=== PATIENT | male | born 1950 | race Native Hawaiian/Other Pacific Islander ===

== ENCOUNTER 2016-11-06 20:19 | Observation (INO) | payer MEDICARE, BC ==
[~2016-11-06] VITALS: Ht 182.9 cm; Wt 72.0 kg
[~2016-11-06 20:19] MED LIST: ACTO30TA10 PO; ASPI325T33 PO; BUPR150T3 PO; CALTTAB PO; CENTTAB PO; FOLI5CAP PO; METF1000 PO; METH5INJ INJ; PLAV75TA29 PO; ZOCO20TA PO
[2016-11-06 20:23] VITALS: BP 130/63; PULSE 77; RESP 18; TEMP 97.4; O2SAT 100
[2016-11-06] MEDS ORDERED: SODIUM CHLOR 0.9% 1000 ML INJ 1,000 ML IV SCH (20:50)
[2016-11-06] MEDS ORDERED: SODIUM CHLORIDE 0.9% FLUSH 5 ML FLUSH IVF PRN (21:00)
[2016-11-06] MEDS ORDERED: MORPHINE SULFATE 4 MG/ML INJ IV PUSH ONE ×2 (21:00→22:00)
[2016-11-06] MEDS ORDERED: PANTOPRAZOLE SODIUM 40 MG VIAL IV PUSH ONE (21:00)
--- NOTE | 2016-11-06 21:23 | PD ---
HPI Chief Complaint: Abdominal Pain Time Seen by Provider: 20:44 Travel History International Travel<30 days: No Contact w/Intl Traveler<30days: No Traveled to known affect area: No History of Present Illness HPI 66yo M with PMH of colorectal CA s/p colon resection, HTN, NIDDM, TIA, pancreatitis, bowel obstruction presents to the ED with c/o abdominal pain that started at 2:30pm today. Pain is diffuse but more on left upper quadrant. Currently does not feel nauseous and no vomiting. +Flatus. Normal bowel movement today. Had history of obstruction and partial obstruction before. Denies any fever, cough, chest pain, sob, urinary complaints. PFSH Past Medical History Cancer: Yes (colon) Cardiovascular Problems: No Diabetes: Yes Diminished Hearing: Yes (BILAT HEARING AIDS) Endocrine: Yes Gastrointestinal Disorders: Yes (PRIOR OBSTRUCTIONS) GERD: No Genitourinary: No Hiatal Hernia: No Immune Disorder: No Musculoskeletal: No Neurologic: No Reproductive: No Respiratory: No Thyroid Disease: No Ulcer: No Past Surgical History Abdominal Surgery: Yes (COLON RESECTION; HERNIA REPAIR) Cardiac Surgery: No Endocrine Surgery: No Eye Surgery: No Oral Surgery: No Thoracic Surgery: No Social History Alcohol Use: Yes (OCCASIONAL) Tobacco Use: No Substance Use: No Allergies-Medications (Allergen,Severity, Reaction): Coded Allergies: Tetracycline (Verified Allergy, Intermediate, RASH, 11/06/16) Reported Meds & Prescriptions Reported Meds & Active Scripts Active Plavix (Clopidogrel Bisulfate) 75 Mg Tab 75 Mg PO DAILY Aspirin EC (Aspirin) 325 Mg Tabdr 325 Mg PO DAILY Reported Tradjenta (Linagliptin) 5 Mg Tab 5 Mg PO DAILY Methotrexate Inj 50 Mg/2 Ml Inj 25 Mg INJ WEEKLY Zocor (Simvastatin) 20 Mg Tab 20 Mg PO DAILY Centrum Silver (Multiple Vitamins W/ Minerals) 1 Tab 1 Tab PO DAILY Caltrate 600+D (Calcium Carbonate-Cholecalciferol) 600-800 Mg-Unit Tab 1 Tab PO BID Actos (Pioglitazone HCl) 30 Mg Tab 30 Mg PO DAILY Metformin (Metformin HCl) 1,000 Mg Tab 1,000 Mg PO BIDPC With meals Folic Acid 5 Mg Cap 1 Mg PO DAILY Review of Systems Except as stated in HPI: all other systems reviewed are Neg Physical Exam Narrative GENERAL: 66yo M in mild distress. SKIN: Warm and dry. HEAD: Atraumatic. Normocephalic. EYES: Pupils equal and round. No scleral icterus. No injection or drainage. ENT: No nasal bleeding or discharge. Mucous membranes pink and moist. NECK: Trachea midline. No JVD. CARDIOVASCULAR: Regular rate and rhythm. No murmur appreciated. RESPIRATORY: No accessory muscle use. Clear to auscultation. Breath sounds equal bilaterally. GASTROINTESTINAL: Abdomen soft, +TTP LUQ, periumbilical. No rebound tenderness. +Guarding in LUQ. MUSCULOSKELETAL: No obvious deformities. No clubbing. No cyanosis. No edema. NEUROLOGICAL: Awake and alert. No obvious cranial nerve deficits. Motor grossly within normal limits. Normal speech. PSYCHIATRIC: Appropriate mood and affect; insight and judgment normal. Data Data Last Documented VS Vital Signs Date Time Temp Pulse Resp B/P Pulse Ox O2 Delivery O2 Flow Rate FiO2 11/07/16 00:00 84 16 111/61 100 Nasal Cannula 2 11/06/16 20:23 97.4 Orders Complete Blood Count With Diff (11/06/16 20:50) Comprehensive Metabolic Panel (11/06/16 20:50) Lipase (11/06/16 20:50) Prothrombin Time / Inr (Pt) (11/06/16 20:50) Act Partial Throm Time (Ptt) (11/06/16 20:50) Urinalysis - C+S If Indicated (11/06/16 20:50) Ct Abd/Pel W Iv Contrast(Rout) (11/06/16 20:50) Iv Access Insert/Monitor (11/06/16 20:50) Ecg Monitoring (11/06/16 20:50) Oximetry (11/06/16 20:50) Morphine Inj (Morphine Inj) (11/06/16 21:00) Sodium Chlor 0.9% 1000 Ml Inj (Ns 1000 M (11/06/16 20:50) Sodium Chloride 0.9% Flush (Ns Flush) (11/06/16 21:00) Electrocardiogram (11/06/16 20:50) Pantoprazole Inj (Protonix Inj) (11/06/16 21:00) Lactic Acid Sepsis Protocol (11/06/16 20:50) Ondansetron Inj (Zofran Inj) (11/06/16 21:30) Morphine Inj (Morphine Inj) (11/06/16 22:00) Iohexol 350 Inj (Omnipaque 350 Inj) (11/06/16 23:57) Vital Signs (Adult) Q4H (11/07/16 01:08) Activity Oob With Assistance (11/07/16 01:08) ^ Director Of Women'S Services / Telemetry .CONTINUOUS (11/07/16 01:08) Intake + Output CORBY.QSHIFT (11/07/16 01:08) Sodium Chlor 0.9% 1000 Ml Inj (Ns 1000 M (11/07/16 01:08) Sodium Chloride 0.9% Flush (Ns Flush) (11/07/16 01:15) Sodium Chloride 0.9% Flush (Ns Flush) (11/07/16 09:00) Ondansetron Inj (Zofran Inj) (11/07/16 01:15) Metoclopramide Inj (Reglan Inj) (11/07/16 01:15) Basic Metabolic Panel (Bmp) (11/08/16 06:00) Complete Blood Count With Diff (11/08/16 06:00) Pt Request For Service (11/07/16 01:08) Scd Bilateral/Knee High CORBY.BID (11/07/16 01:08) Naloxone Inj (Narcan Inj) (11/07/16 01:15) Morphine Inj (Morphine Inj) (11/07/16 01:15) Admit Order (Ed Use Only) (11/07/16 01:15) Aspirin Ec (Ecotrin Ec) (11/07/16 09:00) Clopidogrel (Plavix) (11/07/16 09:00) Folic Acid (Folate) (11/07/16 09:00) Pravastatin (Pravachol) (11/07/16 21:00) Labs Laboratory Tests Test 11/06/16 21:25 White Blood Count 10.8 TH/MM3 Red Blood Count 4.41 MIL/MM3 Hemoglobin 12.8 GM/DL Hematocrit 38.0 % Mean Corpuscular Volume 86.3 FL Mean Corpuscular Hemoglobin 29.0 PG Mean Corpuscular Hemoglobin 33.6 % Concent Red Cell Distribution Width 16.6 % Platelet Count 230 TH/MM3 Mean Platelet Volume 8.5 FL Neutrophils (%) (Auto) 89.6 % Lymphocytes (%) (Auto) 4.5 % Monocytes (%) (Auto) 5.6 % Eosinophils (%) (Auto) 0.0 % Basophils (%) (Auto) 0.3 % Neutrophils # (Auto) 9.7 TH/MM3 Lymphocytes # (Auto) 0.5 TH/MM3 Monocytes # (Auto) 0.6 TH/MM3 Eosinophils # (Auto) 0.0 TH/MM3 Basophils # (Auto) 0.0 TH/MM3 CBC Comment DIFF FINAL Differential Comment Prothrombin Time 9.7 SEC Prothromb Time International 0.9 RATIO Ratio Activated Partial 25.5 SEC Thromboplast Time Sodium Level 135 MEQ/L Potassium Level 4.3 MEQ/L Chloride Level 100 MEQ/L Carbon Dioxide Level 25.6 MEQ/L Anion Gap 9 MEQ/L Blood Urea Nitrogen 16 MG/DL Creatinine 0.79 MG/DL Estimat Glomerular Filtration 98 ML/MIN Rate Random Glucose 176 MG/DL Lactic Acid Level 1.1 mmol/L Calcium Level 8.9 MG/DL Total Bilirubin 0.4 MG/DL Aspartate Amino Transf 21 U/L (AST/SGOT) Alanine Aminotransferase 28 U/L (ALT/SGPT) Alkaline Phosphatase 76 U/L Total Protein 7.3 GM/DL Albumin 3.6 GM/DL Lipase 176 U/L [facility] Medical Decision Making Medical Screen Exam Complete: Yes Emergency Medical Condition: Yes Interpretation(s) EKG: NSR 87bpm. LAD. RBBB. Differential Diagnosis Acute gastritis vs. pancreatitis vs. partial small bowel obstruction vs. atypical ACS Narrative Course 66yo M with severe abdominal pain today. Nausea but no vomiting. +Flatus. Labs reviewed, no leukocytosis. Lactic acid 1.1. Lipase 176. CTa/p showed single loop of mildly dilated fluid filled small bowel within midabdomen in midline at level of the umbilicus. Pt required two doses of IV morphine, protonix, and zofran. Abdominal pain has improved. Discussed with Dr. Sherman and accepted for observation. Diagnosis Primary Impression: Ileus Admitting Information Admitting Physician Requests: Observation Ramona Wolf DO Nov 06, 2016 21:23
[2016-11-06 21:30] VITALS: BP 136/71; PULSE 85; RESP 16; O2SAT 100
[2016-11-06] MEDS ORDERED: ONDANSETRON HCL 4 MG/2 ML VIAL IV PUSH ONE (21:30)
[2016-11-06 21:54] LABS: AUTOMATED NEUTROPHIL # 9.7 TH/MM3 (1.8-7.7); BASOPHIL % 0.3 % (0.0-2.0); HEMO FLAGS DIFF FINAL; LYMPH % 4.5 % (9.0-44.0); LYMPHOCYTE # 0.5 TH/MM3 (1.0-4.8); MEAN CELL VOLUME 86.3 FL (80.0-100.0); MEAN CORPUSCULAR HGB CONC 33.6 % (32.0-36.0); MONO % 5.6 % (0.0-8.0); NEUT % 89.6 % (16.0-70.0); PLATELET COUNT 230 TH/MM3 (150-450); RED BLOOD COUNT 4.41 MIL/MM3 (4.50-5.90); RED CELL DISTRIBUTION WIDTH 16.6 % (11.6-17.2); WHITE BLOOD COUNT 10.8 TH/MM3 (4.0-11.0)
[2016-11-06] MEDS ORDERED: TRAD5TAB PO (22:05)
[2016-11-06 22:06] LABS: APTT (PATIENT) 25.5 SEC (24.3-30.1); INTERNATIONAL NORMALIZED RATIO 0.9 RATIO; PROTHROMBIN TIME - PATIENT 9.7 SEC (9.8-11.6)
[2016-11-06 22:14] LABS: ALT (GPT) 28 U/L (12-78); ANION GAP 9 MEQ/L (5-15); AST (GOT) 21 U/L (15-37); BICARBONATE 25.6 MEQ/L (21.0-32.0); BLOOD UREA NITROGEN 16 MG/DL (7-18); CHLORIDE 100 MEQ/L (98-107); GLOMERULAR FILTRATION RATE 98 ML/MIN (>89); POTASSIUM 4.3 MEQ/L (3.5-5.1); SODIUM (NA) 135 MEQ/L (136-145)
[2016-11-06 22:17] LABS: ALKALINE PHOSPHATASE 76 U/L (45-117); TOTAL BILIRUBIN ADULT 0.4 MG/DL (0.2-1.0)
[2016-11-06 22:30] VITALS: BP 134/75; PULSE 98; RESP 16; O2SAT 100
[2016-11-06] MEDS ORDERED: IOHEXOL 350 MG/ML 10 ML VIAL (for RAD DIAG) IV ONE (23:57)
[2016-11-07] VITALS (20 sets, daily range): BP systolic 111–159; BP diastolic 61–84; PULSE 64–90; RESP 16–19; TEMP 97.7–98.6; O2SAT 97–100
--- NOTE | 2016-11-07 00:18 | RADRPT ---
EXAM DATE/TIME: 11/06/2016 23:54 [facility] COMPARISON: No previous studies available for comparison. INDICATIONS : Diffuse abdominal pain for 3 days. IV CONTRAST: 98 cc Omnipaque 350 (iohexol) IV ORAL CONTRAST: No oral contrast ingested. RADIATION DOSE: 5.85 CTDIvol (mGy) MEDICAL HISTORY : Carcinoma, colon. Diabetes mellitus type 2. Hernia SURGICAL HISTORY : Colon resection. ENCOUNTER: Initial ACUITY: 3 days PAIN SCALE: 5/10 LOCATION: Diffuse abdomen/pelvis TECHNIQUE: Volumetric scanning of the abdomen and pelvis was performed. Using automated exposure control and ad justment of the mA and/or kV according to patient size, radiation dose was kept as low as reasonably achievable to obtain optimal diagnostic quality images. FINDINGS: LOWER LUNGS: Bibasilar atelectasis. LIVER: Homogeneous density without lesion. There is no dilation of the biliary tree. No calcified gallston es. SPLEEN: Normal size without lesion. PANCREAS: Within normal limits. KIDNEYS: Normal in size and shape. There is no mass, stone or hydronephrosis. ADRENAL GLANDS: Within normal limits. VASCULAR: There is no aortic aneurysm. BOWEL/MESENTERY: There is a single loop of mildly dilated fluid filled small bowel within the midabdomen in the midlin e at the level the umbilicus. No stranding of the adjacent fat. No focal transition point. No obstruc ting mass or lesion. The remaining bowel structures are unremarkable. No free air or free fluid. Surg ical clips are seen associated with the colon. ABDOMINAL WALL: Within normal limits. RETROPERITONEUM: There is no lymphadenopathy. BLADDER: No wall thickening or mass. REPRODUCTIVE: Within normal limits. INGUINAL: There is no lymphadenopathy or hernia. MUSCULOSKELETAL: Within normal limits for patient age. CONCLUSION: 1. Single loop of mildly dilated fluid filled small bowel within the midabdomen without appreciable i nflammatory process. This is a nonspecific finding. I do not see an obstructing mass or lesion.2. Oth erwise, unremarkable exam. Varun Cain Jr., MD on November 07, 2016 at 0:12 Board Certified Radiologist. This report was verified electronically.
[2016-11-07] MEDS ORDERED: SODIUM CHLOR 0.9% 1000 ML INJ 1,000 ML IV SCH (01:08)
[2016-11-07] MEDS ORDERED: SODIUM CHLORIDE 0.9% FLUSH 5 ML FLUSH FLUSH PRN (01:15)
[2016-11-07] MEDS ORDERED: METOCLOPRAMIDE HCL 10 MG/2 ML VIAL IV PUSH PRN (01:15)
[2016-11-07] MEDS ORDERED: NALOXONE HCL 0.4 MG/ML AMP IV PRN (01:15)
[2016-11-07] MEDS ORDERED: DEXTROSE 50% IN WATER 50 ML VIAL(D50) IV PUSH PRN (01:30)
[2016-11-07] MEDS ORDERED: GLUCAGON 1 MG/ML VIAL OTHER PRN (01:30)
[2016-11-07] MEDS ORDERED: DEXT 5%-NACL 0.45% 1000 ML INJ 1,000 ML IV SCH (01:30)
--- NOTE | 2016-11-07 03:10 | HHI.HP ---
[facility] Service [facility] Primary Care Physician Herberth Hill Jr, MD Admission Diagnosis Dilated small bowel loop Diagnoses: Chief Complaint: Abdominal pain Travel History International Travel<30 Days: No Contact w/Intl Traveler <30 Da: No Traveled to Known Affected Are: No History of Present Illness History taken from patient and ED physician. This is a pleasant 66-year-old male with a history of colon cancer, diabetes, CAD, and dyslipidemia who presented to the ED with complaints of abdominal pain that started just after lunch. Patient states the tightening pain is located in his epigastric region and left upper quadrant, he denies any associated symptoms of nausea, vomiting or diarrhea. He states his last bowel movement was this morning and he is having flatulence. He denies any fever, chills, chest pain or shortness of breath. Within the last 1 or 2 weeks there has been no change in any bowel movements or problems with urination. Review of Systems Constitutional: DENIES: Fever, Chills Respiratory: DENIES: Cough, Shortness of breath Cardiovascular: DENIES: Chest pain, Lower Extremity Edema Gastrointestinal: COMPLAINS OF: Abdominal pain, DENIES: Black stools, Bloody stools, Constipation, Diarrhea, Nausea, Vomiting Genitourinary: DENIES: Hematuria Musculoskeletal: DENIES: Back pain, Neck pain Integumentary: DENIES: Rash Immunologic/allergic: DENIES: Urticaria Past Family Social History Past Medical History Colon cancer Diabetes CAD Dyslipidemia TIA Past Surgical History Partial colon resection 1993 Lysis of adhesions 2010 PFO closure in 2016 Left rotator cuff repair Reported Medications Reported Meds & Active Scripts Active Plavix (Clopidogrel Bisulfate) 75 Mg Tab 75 Mg PO DAILY Aspirin EC (Aspirin) 325 Mg Tabdr 325 Mg PO DAILY Reported Tradjenta (Linagliptin) 5 Mg Tab 5 Mg PO DAILY Methotrexate Inj 50 Mg/2 Ml Inj 25 Mg INJ WEEKLY Zocor (Simvastatin) 20 Mg Tab 20 Mg PO DAILY Centrum Silver (Multiple Vitamins W/ Minerals) 1 Tab 1 Tab PO DAILY Caltrate 600+D (Calcium Carbonate-Cholecalciferol) 600-800 Mg-Unit Tab 1 Tab PO BID Actos (Pioglitazone HCl) 30 Mg Tab 30 Mg PO DAILY Metformin (Metformin HCl) 1,000 Mg Tab 1,000 Mg PO BIDPC With meals Folic Acid 5 Mg Cap 1 Mg PO DAILY Allergies: Coded Allergies: Tetracycline (Verified Allergy, Intermediate, RASH, 11/06/16) Active Ordered Medications Current Medications Medications (Trade) Dose Ordered Sig/Lauro Route Start Time Stop Time Status Last Admin (NS Flush) 2 ml UNSCH PRN FLUSH 11/07/16 01:15 (NS Flush) 2 ml BID FLUSH 11/07/16 09:00 (Zofran Inj) 4 mg Q6H PRN IVP 11/07/16 01:15 (Reglan Inj) 5 mg Q6H PRN IV PUSH 11/07/16 01:15 (Narcan Inj) 0.4 mg UNSCH PRN IV 11/07/16 01:15 (Morphine Inj) 4 mg Q3H PRN IV PUSH 11/07/16 01:15 11/07/16 03:36 (Ecotrin Ec) 325 mg DAILY PO 11/07/16 09:00 (Plavix) 75 mg DAILY PO 11/07/16 09:00 (Folate) 1 mg DAILY PO 11/07/16 09:00 (Pravachol) 40 mg HS PO 11/07/16 21:00 (D50w (Vial) Inj) 25 ml UNSCH PRN IV PUSH 11/07/16 01:30 Glucagon 1 mg 1 mg UNSCH PRN OTHER 11/07/16 01:30 (D5W-1/2 NS 1000 ml Inj) 1,000 ml @ 100 mls/hr Q10H IV 11/07/16 01:30 11/07/16 01:39 Family History Family history significant for diabetes. Social History Tobacco use: Quit 1980 Alcohol use: Socially Illicit drug use: Denies Physical Exam Vital Signs Vital Signs Date Time Temp Pulse Resp B/P Pulse Ox O2 Delivery O2 Flow Rate FiO2 11/07/16 00:00 84 16 111/61 100 Nasal Cannula 2 11/06/16 22:30 98 16 134/75 100 Nasal Cannula 2 11/06/16 21:30 85 16 136/71 100 Nasal Cannula 2 11/06/16 20:23 97.4 77 18 130/63 100 Physical Exam GENERAL: This is a well-nourished, well-developed patient, in no apparent distress. SKIN: No rashes, ecchymoses or lesions. Cool and dry. HEAD: Atraumatic. Normocephalic EYES: Pupils equal round and reactive. ENT: Nose without bleeding, purulent drainage or septal hematoma. Airway patent. NECK: Trachea midline. No JVD CARDIOVASCULAR: Regular rate and rhythm without murmurs, gallops, or rubs. RESPIRATORY: Clear to auscultation. Breath sounds equal bilaterally. No wheezes , rales, or rhonchi. GASTROINTESTINAL: Abdomen soft, tender, nondistended. no rebound, no guarding MUSCULOSKELETAL: Extremities without clubbing, cyanosis, or edema. No joint tenderness, effusion, or edema noted. No calf tenderness. NEUROLOGICAL: Awake and alert. Motor and sensory grossly within normal limits. Normal speech. Laboratory Laboratory Tests Test 11/06/16 21:25 White Blood Count 10.8 Red Blood Count 4.41 Hemoglobin 12.8 Hematocrit 38.0 Mean Corpuscular Volume 86.3 Mean Corpuscular Hemoglobin 29.0 Mean Corpuscular Hemoglobin 33.6 Concent Red Cell Distribution Width 16.6 Platelet Count 230 Mean Platelet Volume 8.5 Neutrophils (%) (Auto) 89.6 Lymphocytes (%) (Auto) 4.5 Monocytes (%) (Auto) 5.6 Eosinophils (%) (Auto) 0.0 Basophils (%) (Auto) 0.3 Neutrophils # (Auto) 9.7 Lymphocytes # (Auto) 0.5 Monocytes # (Auto) 0.6 Eosinophils # (Auto) 0.0 Basophils # (Auto) 0.0 CBC Comment DIFF FINAL Differential Comment Prothrombin Time 9.7 Prothromb Time International 0.9 Ratio Activated Partial 25.5 Thromboplast Time Sodium Level 135 Potassium Level 4.3 Chloride Level 100 Carbon Dioxide Level 25.6 Anion Gap 9 Blood Urea Nitrogen 16 Creatinine 0.79 Estimat Glomerular Filtration 98 Rate Random Glucose 176 Lactic Acid Level 1.1 Calcium Level 8.9 Total Bilirubin 0.4 Aspartate Amino Transf 21 (AST/SGOT) Alanine Aminotransferase 28 (ALT/SGPT) Alkaline Phosphatase 76 Total Protein 7.3 Albumin 3.6 Lipase 176 Result Diagram: 11/06/16212411/06/162124 Assessment and Plan Problem List: (1) Abdominal pain ICD Code: R10.9 Status: Acute (2) DM (diabetes mellitus) ICD Code: E11.9 Status: Chronic Assessment and Plan 56-year-old male with a history of colon cancer, diabetes, CAD, dyslipidemia presented to the ED with: Abdominal pain Images reviewed: Abdominal CT shows a single loop in the mid abdomen of mildly dilated fluid-filled small bowel with no evidence of a mass. -Nothing by mouth -Supportive IVF D5 1/2NS -Consult Dr. You-per patient request -Pain management with IV morphine Diabetes, chronic -Accu-Cheks before meals and at bedtime with sliding scale insulin -We'll resume diabetic diet when appropriate Other Chronic conditions: CAD, dyslipidemia-reorder home medications Plavix,ASA , and pravastatin. DVT prophylaxis: SCDs Written by Mahogany PEREZ, acting as scribe for Dr. Sherman on 11/07/16 at 0240. The documentation accurately reflects the work performed [id number] and decisions made by me and the physician Dr Sherman on 11/07/16. The documentation accurately reflects the work performed [id number] by me on at 0240 Discussed Condition With Patient, RN and ED physician Mahogany Guzman Nov 07, 2016 03:10 Mihir Sherman MD Nov 07, 2016 22:50 Discussed Condition With Patient, RN and ED physician Mahogany Guzman Nov 07, 2016 03:10
[2016-11-07] MEDS: MORPHINE SULFATE 4 MG/ML INJ IV PUSH PRN ×3 (03:36→22:50)
[2016-11-07] MEDS: INSULIN ASPART SUPPLEMENTAL SCALE SQ SCH ×4 (07:37→20:43)
[2016-11-07] MEDS ORDERED: DIATRIZOATE MEGLUM/DIATRIZOATE SOD 9 ML CUP PO ONE (09:00)
[2016-11-07] MEDS: CLOPIDOGREL 75 MG TAB PO SCH (09:00)
[2016-11-07] MEDS: SODIUM CHLORIDE 0.9% FLUSH 5 ML FLUSH FLUSH SCH ×2 (09:00→20:43)
[2016-11-07] MEDS: FOLIC ACID 1 MG TAB PO SCH (09:00)
[2016-11-07] MEDS: ASPIRIN EC 325 MG TABEC PO SCH (09:00)
--- NOTE | 2016-11-07 11:48 | HHI.PR ---
Subjective Remarks Follow up for SBO. 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 Denies any chest pain, SOB, fever, chills. Yesterday, he passed gas but no bowel movement or flatus today. Family at bedside. Objective Vitals Vital Signs Date Time Temp Pulse Resp B/P Pulse Ox O2 Delivery O2 Flow Rate FiO2 11/07/16 11:46 98.4 81 17 143/84 100 11/07/16 10:00 78 11/07/16 09:00 73 11/07/16 08:00 75 11/07/16 07:30 97.8 76 17 127/71 100 11/07/16 07:00 90 11/07/16 06:00 83 11/07/16 04:45 79 11/07/16 04:30 98.1 74 16 112/63 98 11/07/16 04:00 98.6 84 16 120/66 100 Nasal Cannula 11/07/16 00:00 84 16 111/61 100 Nasal Cannula 2 11/06/16 22:30 98 16 134/75 100 Nasal Cannula 2 11/06/16 21:30 85 16 136/71 100 Nasal Cannula 2 11/06/16 20:23 97.4 77 18 130/63 100 I/O 11/06/16 11/06/16 11/06/16 11/07/16 11/07/16 11/07/16 06:59 14:59 22:59 06:59 14:59 22:59 Intake Total 302 ml Output Total 0 ml Balance 302 ml Intake Oral 0 ml IV Total 302 ml Output Urine Total 0 ml # Bowel Movements 0 Result Diagram: 11/06/16212411/06/162124 Imaging Last Impressions Abdomen/Pelvis CT 11/06/162049 Signed Impressions: Service Date/Time: Sunday, November 06, 2016 23:54 - CONCLUSION: 1. Single loop of mildly dilated fluid filled small bowel within the midabdomen without appreciable inflammatory process. This is a nonspecific finding. I do not see an obstructing mass or lesion. 2. Otherwise, unremarkable exam. Varun Cain Jr., MD Objective Remarks GENERAL: AOX3, NAD. SKIN: Warm and dry. HEAD: Normocephalic. EYES: No scleral icterus. No injection or drainage. NECK: Supple, trachea midline. No JVD or lymphadenopathy. CARDIOVASCULAR: Regular rate and rhythm without murmurs, gallops, or rubs. RESPIRATORY: Breath sounds equal bilaterally. No accessory muscle use. GASTROINTESTINAL: Abdomen soft, tender to palpation, nondistended. Hypoactive bowel sound but present in all 4 quadrants. MUSCULOSKELETAL: No cyanosis, or edema. BACK: Nontender without obvious deformity. No CVA tenderness. 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 His pain was in the epigastric region and left upper quadrant. He did not have any nausea vomiting at the onset of symptoms but he developed nausea, vomiting today. - Small bowel obstruction - CT abdomen reviewed by me, shows small bowel loop - Continue IV fluid but change to NS @84cc/hour. - Colorectal surgeon Dr. You has been consulted. - A repeat CT abd/pelvis ordered by Dr. You. - Diabetes mellitus - Patient takes PO medications at home. - Will continue Sliding scale insulin and start Levemir 5 units QHS. - Hyperlipidemia - CAD - Continue aspirin and plavix as well as statin. - Will transfer patient to med surg without telemetry. No acute cardiac issues. Full code. SCDs for now. Rahul Rao DO Nov 07, 2016 11:48 am
[2016-11-07] MEDS: SODIUM CHLOR 0.9% 1000 ML INJ 1,000 ML IV SCH ×2 (12:06→21:17)
[2016-11-07] MEDS: ONDANSETRON HCL 4 MG/2 ML VIAL IVP PRN ×2 (14:19→21:25)
--- NOTE | 2016-11-07 16:28 | RADRPT ---
EXAM DATE/TIME: 11/07/2016 13:20 [facility] COMPARISON: CT ABDOMEN & PELVIS W CONTRAST, November 06, 2016, 23:54. CT ABDOMEN & PELVIS W/O CONTRAST, April 23, 2011, 11:55. INDICATIONS : Follow up small bowel obstrution. ORAL CONTRAST: Prescribed oral contrast ingested. RADIATION DOSE: 4.58 CTDIvol (mGy) MEDICAL HISTORY : Carcinoma, colon. Diabetes SURGICAL HISTORY : Colon resection. Hernia repair ENCOUNTER: Subsequent ACUITY: 2 days PAIN SCALE: 0/10 LOCATION: Abdomen TECHNIQUE: Volumetric scanning of the abdomen and pelvis was performed. Using automated exposure control and ad justment of the mA and/or kV according to patient size, radiation dose was kept as low as reasonably achievable to obtain optimal diagnostic quality images. The lack of IV contrast limits the diagnosis for certain organ pathology. FINDINGS: LOWER LUNGS: The visualized lower lungs are clear. LIVER: Homogeneous density without lesion. There is no dilation of the biliary tree. No calcified gallston es. There is contrast in the gallbladder. SPLEEN: Normal size without lesion. PANCREAS: Within normal limits. KIDNEYS: Normal in size and shape. There is no mass, stone, or hydronephrosis. ADRENAL GLANDS: Within normal limits. VASCULAR: There is no aortic aneurysm. BOWEL/MESENTERY: There continues to be a focal moderately dilated loop of small bowel in the midabdomen. This dilated loop is present on the prior exam. There is oral contrast now noted within this dilated loop of bowel . The small bowel proximal and distal to this loop are nondilated. The colon is nondilated and there is stool in the colon. No free fluid is demonstrated. No free air is seen. The appendix is unremarkab le. ABDOMINAL WALL: Within normal limits. RETROPERITONEUM: There is no lymphadenopathy. BLADDER: No wall thickening or mass. There is contrast in the urinary bladder. REPRODUCTIVE: Within normal limits. INGUINAL: There is no lymphadenopathy or hernia. MUSCULOSKELETAL: Within normal limits for patient age. Stable primary degenerative changes. CONCLUSION: There continues to be a nonspecific focally dilated loop of small bowel in the midabdomen. This dilat ed loop of small bowel has contrast in it on today's exam. The small bowel proximal and distal to thi s area are nondilated. The colon is nondilated. This may be a partial closed-loop obstruction. Otherw ise, no other new or significant changes are seen compared to the prior exam. Qasim J. Siragusa, MD on November 07, 2016 at 16:16 Board Certified Radiologist. This report was verified electronically.
[2016-11-07] MEDS ORDERED: HYDROmorphone HCL PF 1 MG/ML VIAL IV PUSH PRN (17:00)
[2016-11-07] MEDS ORDERED: SOD PHOSPHATE/SOD BIPHOSPHATE (ADULT) ENEMA 133ML PR ONE (17:15)
[2016-11-07] MEDS: PRAVASTATIN SOD 40 MG TAB PO SCH (20:42)
[2016-11-07] MEDS ORDERED: INSULIN DETEMIR 100 UNITS/ML VIAL SQ SCH (21:00)
--- NOTE | 2016-11-07 21:02 | MB ---
cc: SHANIQUE MELLO M.D. DATE OF CONSULTATION: 11/07/2016 PREOPERATIVE DIAGNOSIS Abdominal pain, possible small bowel obstruction, history of colon cancer. HISTORY OF PRESENT ILLNESS Raymon is a 66-year-old male with a history of colon cancer, diabetes and previous bowel obstruction, who had been doing well over the holidays noting onset of severe abdominal pain earlier the day of admission. He says he did take quite a bit of salad material and leafy vegetables. The pain was quite severe especially in the mid portion around the umbilicus and left upper quadrant. He denies any nausea, vomiting, diarrhea. No fever. He did have a bowel movement the morning prior to coming to the ER. Colonoscopy a short while ago was pretty unremarkable. The patient went to the ER, had a CT scan that showed a very dilated loop of small bowel consistent with either significant ileus or a partial small bowel obstruction. No signs of any metastatic disease were noted. The patient has also had a history of some pancreatitis with elevation of his amylase and lipase in the past. He denies any weight loss. Please see the history and physical for more complete past medical and surgical history. PERTINENT PHYSICAL A very pleasant tall male, in no acute distress. HEENT: Remarkable for pink dry membranes, nonicteric sclera. NECK: Supple without gross adenopathy. HEART: Regular rhythm. ABDOMEN: Very doughy, rounded, obvious incisional hernia. No real neck to the hernia was palpable. Minimal tenderness. Quite a bit of tympany. No rebound, guarding or any masses noted. EXTREMITIES: No cyanosis or clubbing, minimal pedal edema. LABORATORY STUDIES: White count was 10.8, hemoglobin 12.8, hematocrit 38.0, platelet count was 230,000. Electrolytes were remarkable for BUN of 16, creatinine of 0.79, normal liver function tests, amylase and lipase were normal. CT scan reviewed showing quite a bit of stool present and a loop of small bowel left side of the abdomen with dilatation and possible lack of oral contrast consistent with either partial or high-grade small bowel obstruction. IMPRESSION The patient is a 66 year-old male with a history of colon cancer and previous small bowel obstruction from adhesions. Abdominal pain and findings on CT scan are a little worrisome for another loop of compromised small bowel. Dr. 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 At this point we will give him some liquids and see if stool can be evacuated with either oral laxatives or enemas, and hopefully get this to resolve with conservative treatment. If he does not show any resolution of his pain or increased bowel activity in the next 24 to 48 hours, he may need additional laparotomy. MD PARUL Silverio/MIKE /8:27 PM /8:50 PM
--- NOTE | 2016-11-07 23:47 | EKG ---
Date Performed: 11/06/2016 Time Performed: 22:25:08 PTAGE: 66 years EKG: Sinus rhythm RIGHT BUNDLE BRANCH BLOCK POSSIBLE SEPTAL MYOCARDIAL INFARCTION ABNORMAL ECG PREVIOUS TRACING : 09/07/2016 07.35 DOCTOR: Ren Pagan Interpretating Date/Time 11/07/2016 23:42:27
[2016-11-08] MEDS: TEMAZEPAM 7.5 MG CAP PO PRN ×2 (00:09→22:32)
[2016-11-08] MEDS: MORPHINE SULFATE 4 MG/ML INJ IV PUSH PRN ×2 (01:56→05:42)
[2016-11-08] MEDS: ONDANSETRON HCL 4 MG/2 ML VIAL IVP PRN (05:41)
[2016-11-08] MEDS: SODIUM CHLOR 0.9% 1000 ML INJ 1,000 ML IV SCH (05:46)
[2016-11-08] MEDS: INSULIN ASPART SUPPLEMENTAL SCALE SQ SCH ×4 (05:49→20:01)
[2016-11-08 06:33] LABS: AUTOMATED NEUTROPHIL # 3.9 TH/MM3 (1.8-7.7); BASOPHIL % 0.1 % (0.0-2.0); EOSINOPHIL % 0.9 % (0.0-4.0); HEMATOCRIT 37.9 % (39.0-51.0); HEMO FLAGS DIFF FINAL; LYMPH % 10.8 % (9.0-44.0); LYMPHOCYTE # 0.5 TH/MM3 (1.0-4.8); MEAN CELL VOLUME 87.2 FL (80.0-100.0); MEAN CORPUSCULAR HEMOGLOBIN 28.7 PG (27.0-34.0); MEAN CORPUSCULAR HGB CONC 32.9 % (32.0-36.0); MONO % 10.5 % (0.0-8.0); NEUT % 77.7 % (16.0-70.0); PLATELET COUNT 201 TH/MM3 (150-450); RED BLOOD COUNT 4.35 MIL/MM3 (4.50-5.90); RED CELL DISTRIBUTION WIDTH 17.5 % (11.6-17.2); WHITE BLOOD COUNT 5.1 TH/MM3 (4.0-11.0)
[2016-11-08 07:00] LABS: BICARBONATE 27.2 MEQ/L (21.0-32.0); POTASSIUM 3.5 MEQ/L (3.5-5.1)
[2016-11-08 08:00] VITALS: BP 143/71; PULSE 69; RESP 20; TEMP 97.3; O2SAT 98
[2016-11-08] MEDS: SODIUM CHLORIDE 0.9% FLUSH 5 ML FLUSH FLUSH SCH ×2 (08:21→19:58)
[2016-11-08] MEDS: ASPIRIN EC 325 MG TABEC PO SCH (08:22)
[2016-11-08] MEDS: FOLIC ACID 1 MG TAB PO SCH (08:23)
[2016-11-08] MEDS: CLOPIDOGREL 75 MG TAB PO SCH (08:23)
--- NOTE | 2016-11-08 09:55 | HHI.PR ---
Subjective Remarks C/R Surg afebrile, VSS UO good +BM/flatus still with pain Objective - Vital Signs Date Time Temp Pulse Resp B/P Pulse Ox O2 Delivery O2 Flow Rate FiO2 11/08/16 08:00 97.3 69 20 143/71 98 11/07/16 04:00 Nasal Cannula 11/07/16 00:00 2 Result Diagram: 11/08/16 0551 11/08/16 0551 Objective Remarks PE alert Abd - soft, mild tympany, non-tender A/P Assessment and Plan Imp: some BM - no N/V check KUB try PO suppl Jorge You MD Nov 08, 2016 09:55
--- NOTE | 2016-11-08 11:08 | RADRPT ---
EXAM DATE/TIME: 11/08/2016 10:36 [facility] COMPARISON: CT ABDOMEN & PELVIS W CONTRAST, November 06, 2016, 23:54. ABDOMEN FLAT & UPRIGHT, April 30, 2011, 8:[address] ABDOMEN & PELVIS W/O CONTRAST, November 07, 2016, 13:20. INDICATIONS : Evaluate for small bowel obstruction. MEDICAL HISTORY : Carcinoma, colon. Diabetes SURGICAL HISTORY : Colon resection. Hernia repair ENCOUNTER: Subsequent ACUITY: 3 days PAIN SCORE: 0/10 LOCATION: Abdomen. FINDINGS: Supine and upright views of the abdomen were performed. The abdominal bowel gas pattern is normal. No air fluid levels are seen. No abnormal masses, calcifications, or organomegaly is seen. The visu alized lower lungs are clear. No evidence of free intraperitoneal gas. The osseous structures are u nremarkable. CONCLUSION: Mild fluid and gaseous distention of small bowel loops in the left midabdomen. Handy Stephenson MD on November 08, 2016 at 11:03 Board Certified Radiologist. This report was verified electronically.
[2016-11-08 12:00] VITALS: BP 138/63; PULSE 76; RESP 17; TEMP 97.3; O2SAT 99
[2016-11-08 13:20] LABS: BLOOD, URINE TRACE (NEG); COMMENT (UR) CULT NOT INDICATED; CULTURE IF INDICATED CULT NOT INDICATED; GLUCOSE,URINE NEG (NEG); KETONE, URINE NEG (NEG); MUCUS URINE FEW /lpf (OCC); NITRITE,URINE NEG (NEG); PH, URINE 5.5 (5.0-8.5); SQUAMOUS EPITHELIAL CELL URINE <1 /hpf (0-5); URINE COLOR YELLOW (YELLW/STRAW)
[2016-11-08 16:00] VITALS: BP 122/65; PULSE 78; RESP 17; TEMP 97.3; O2SAT 98
--- NOTE | 2016-11-08 18:20 | HHI.PR ---
Subjective Remarks Follow-up for small bowel obstruction. 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 Sitting in his chair. Denies any abdominal pain, fever or chills. Blood sugar is well controlled. KUB shows mild fluid and gaseous distention of small bowel loops in the left mid abdomen. Objective Vitals Vital Signs Date Time Temp Pulse Resp B/P Pulse Ox O2 Delivery O2 Flow Rate FiO2 11/08/16 16:00 97.3 78 17 122/65 98 11/08/16 12:00 97.3 76 17 138/63 99 11/08/16 08:00 97.3 69 20 143/71 98 11/08/16 00:09 18 11/07/16 23:52 97.8 74 19 128/63 98 11/07/16 22:31 18 11/07/16 20:00 97.8 72 19 159/77 97 I/O 11/07/16 11/07/16 11/07/16 11/08/16 11/08/16 11/08/16 07:00 15:00 23:00 07:00 15:00 23:00 Intake Total 302 ml 240 ml 575 ml 500 ml Output Total 0 ml 600 ml 600 ml Balance 302 ml -360 ml 575 ml -100 ml Intake Oral 0 ml 240 ml 240 ml 500 ml IV Total 302 ml 335 ml Output Urine Total 0 ml 600 ml 600 ml # Voids 5 2 # Bowel Movements 0 5 0 1 Result Diagram: 11/08/16 0551 11/08/16 0551 Imaging Last Impressions Abdomen X-Ray 11/08/16 0000 Signed Impressions: Service Date/Time: Tuesday, November 08, 2016 10:36 - CONCLUSION: Mild fluid and gaseous distention of small bowel loops in the left midabdomen. Handy Stephenson MD Abdomen/Pelvis CT 11/07/16 0000 Signed Impressions: Service Date/Time: Monday, November 07, 2016 13:20 - CONCLUSION: There continues to be a nonspecific focally dilated loop of small bowel in the midabdomen. This dilated loop of small bowel has contrast in it on today's exam. The small bowel proximal and distal to this area are nondilated. The colon is nondilated. This may be a partial closed-loop obstruction. Otherwise, no other new or significant changes are seen compared to the prior exam. Qasim Christy MD Objective Remarks GENERAL: AOX3, NAD. SKIN: Warm and dry. HEAD: Normocephalic. EYES: No scleral icterus. No injection or drainage. NECK: Supple, trachea midline. No JVD or lymphadenopathy. CARDIOVASCULAR: Regular rate and rhythm without murmurs, gallops, or rubs. RESPIRATORY: Breath sounds equal bilaterally. No accessory muscle use. GASTROINTESTINAL: Abdomen soft, tender to palpation, nondistended. Hypoactive bowel sound but present in all 4 quadrants. MUSCULOSKELETAL: No cyanosis, or edema. BACK: Nontender without obvious deformity. No CVA tenderness. 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 His pain was in the epigastric region and left upper quadrant. He did not have any nausea vomiting at the onset of symptoms but he developed nausea, vomiting later. - Small bowel obstruction - CT abdomen reviewed by me, shows small bowel loop - Discontinue fluid. Patient is tolerating diet better. - Colorectal surgeon Dr. You has been following. - KUB done - shows mild fluid and gaseous distention of small bowel loops in the left midabdomen. Images reviewed by me. - Currently on full liquid diet. Discussed with Dr. You who will consider advancing diet tomorrow morning. - If patient tolerates diet well, potentially we can discharge him home on 11/09/2016 - Diabetes mellitus - Patient takes PO medications at home. - Will continue Sliding scale insulin. - Hyperlipidemia - CAD - Continue aspirin and plavix as well as statin. Full code. SCDs for now. Rahul Rao DO Nov 08, 2016 6:20 pm
[2016-11-08] MEDS: PRAVASTATIN SOD 40 MG TAB PO SCH (19:58)
[2016-11-08 20:00] VITALS: BP 123/64; PULSE 83; RESP 19; TEMP 98.6; O2SAT 98
[2016-11-09] VITALS: BP 131/64; PULSE 74; RESP 16; TEMP 97.6; O2SAT 100
[2016-11-09] MEDS: INSULIN ASPART SUPPLEMENTAL SCALE SQ SCH (05:49)
[2016-11-09 08:00] VITALS: BP 115/61; PULSE 76; RESP 17; TEMP 97.5; O2SAT 98
[2016-11-09 09:00] VITALS: PULSE 76
[2016-11-09] MEDS: ASPIRIN EC 325 MG TABEC PO SCH (09:00)
[2016-11-09] MEDS: SODIUM CHLORIDE 0.9% FLUSH 5 ML FLUSH FLUSH SCH (09:00)
[2016-11-09] MEDS: FOLIC ACID 1 MG TAB PO SCH (09:00)
--- NOTE | 2016-12-03 23:10 | HHI.DS ---
Discharge Summary Admission Date Nov 07, 2016 at 01:16 Discharge Date: Nov 09, 2016 Admitting Diagnosis Dilated small bowel loop (1) SBO (small bowel obstruction) ICD Code: K56.69 (2) DM (diabetes mellitus) ICD Code: E11.9 (3) HLD (hyperlipidemia) ICD Code: E78.5 (4) CAD (coronary artery disease) ICD Code: I25.10 Procedures None Brief History - From Admission History taken from patient and ED physician. This is a pleasant 66-year-old male with a history of colon cancer, diabetes, CAD, and dyslipidemia who presented to the ED with complaints of abdominal pain that started just after lunch. Patient states the tightening pain is located in his epigastric region and left upper quadrant, he denies any associated symptoms of nausea, vomiting or diarrhea. He states his last bowel movement was this morning and he is having flatulence. He denies any fever, chills, chest pain or shortness of breath. Within the last 1 or 2 weeks there has been no change in any bowel movements or problems with urination. Imaging Last Impressions Abdomen X-Ray 11/08/16 0000 Signed Impressions: Service Date/Time: Tuesday, November 08, 2016 10:36 - CONCLUSION: Mild fluid and gaseous distention of small bowel loops in the left midabdomen. Handy Stephenson MD Abdomen/Pelvis CT 11/07/16 0000 Signed Impressions: Service Date/Time: Monday, November 07, 2016 13:20 - CONCLUSION: There continues to be a nonspecific focally dilated loop of small bowel in the midabdomen. This dilated loop of small bowel has contrast in it on today's exam. The small bowel proximal and distal to this area are nondilated. The colon is nondilated. This may be a partial closed-loop obstruction. Otherwise, no other new or significant changes are seen compared to the prior exam. Qasim Christy MD PE at Discharge PE alert Abd - soft, mild tympany, non-tender Pt update on day of discharge Dr. Ennis is doing well. Tolerating diet well. No fever, chills. 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 His pain was in the epigastric region and left upper quadrant. He did not have any nausea vomiting at the onset of symptoms but he developed nausea, vomiting later. - Small bowel obstruction - CT abdomen reviewed shows small bowel loop - Discontinued fluid. Patient is tolerating diet better. - Colorectal surgeon Dr. You has been following. - KUB done - shows mild fluid and gaseous distention of small bowel loops in the left midabdomen. Images reviewed by me. - Currently on full liquid diet. Discussed with Dr. You who will consider advancing diet tomorrow morning. - Patient tolerated diet well and after clearance from Dr. You, patient was discharged on 11/09/2016. - Diabetes mellitus - Patient takes PO medications at home. - Continued Sliding scale insulin. - Hyperlipidemia - CAD - Continue aspirin and plavix as well as statin. Pt Condition on Discharge: Good Discharge Disposition: Discharge Home Discharge Time: <= 30 minutes Discharge Instructions DIET: Follow Instructions for: As Tolerated, No Restrictions Activities you can perform: Regular-No Restrictions Follow up Referrals: Appointment for Follow Up - 2 Weeks with Jorge You MD Continued Medications: Aspirin DR (Aspirin EC) 325 Mg Tabdr 325 MG PO DAILY stroke #30 Ref 11 TAB Calcium Carbonate-Cholecalciferol (Caltrate 600+D) 600-800 Mg-Unit Tab 1 TAB PO BID Calcium Supplement Ref 0 TAB Clopidogrel (Plavix) 75 Mg Tab 75 MG PO DAILY stroke #30 Ref 6 TAB Folic Acid (Folic Acid) 5 Mg Cap 1 MG PO DAILY Nutritional Supplement Ref 0 CAP Linagliptin (Tradjenta) 5 Mg Tab 5 MG PO DAILY Blood Sugar Management #30 Ref 0 TAB Metformin (Metformin) 1,000 Mg Tab 1000 MG PO BIDPC With meals Blood Sugar Management #60 Ref 0 TAB Methotrexate Inj (Methotrexate Inj) 50 Mg/2 Ml Inj 25 MG INJ WEEKLY Multiple Vitamins W/ Minerals (Centrum Silver) 1 Tab 1 TAB PO DAILY Nutritional Supplement Ref 0 TAB Pioglitazone (Actos) 30 Mg Tab 30 MG PO DAILY Blood Sugar Management #30 Ref 0 TAB Simvastatin (Zocor) 20 Mg Tab 20 MG PO DAILY Cholesterol Management #30 Ref 0 TAB Rahul Rao DO Dec 03, 2016 23:10
== END 2016-11-09 10:59 | disposition home or self-care (01) ==
LOC: NEPA 20:19 → NEDA 11-07 01:16 → HCIN 11-07 04:32 → N07B 11-07 16:34
PROVIDERS: ADMIT Hospitalist; ATTEND Hospitalist
DX: K56.69 Other intestinal obstruction (principal); E11.9 Type 2 diabetes mellitus without complications; E78.5 Hyperlipidemia, unspecified; I25.10 Atherosclerotic heart disease of native coronary artery without angina pectoris; K85.90 Acute pancreatitis without necrosis or infection, unspecified; I10 Essential (primary) hypertension; H91.90 Unspecified hearing loss, unspecified ear; Z79.4 Long term (current) use of insulin; Z79.82 Long term (current) use of aspirin; Z79.02 Long term (current) use of antithrombotics/antiplatelets; Z86.73 Personal history of transient ischemic attack (TIA), and cerebral infarction without residual deficits; Z85.048 Personal history of other malignant neoplasm of rectum, rectosigmoid junction, and anus; Z90.49 Acquired absence of other specified parts of digestive tract; Z87.74 Personal history of (corrected) congenital malformations of heart and circulatory system; Z87.891 Personal history of nicotine dependence
CPT/HCPCS: 74020; 74176; 74177; 80048; 80053; 81001; 82948; 83605; 83690; 85025; 85610; 85730; 93005; 96361; 96374; 96375; 99285; C9113; G0378; J1170; J1815; J2270; J2405; J7030; Q9963; Q9967

== ENCOUNTER 2017-03-08 07:23 | Outpatient (CLI) | payer MEDICARE, BC ==
[~2017-03-08 07:23] MED LIST changes: -BUPR150T3 PO; +TRAD5TAB PO
--- NOTE | 2017-03-08 12:18 | EC ---
Study Study Date:03/08/2017 STUDY CONCLUSIONS SUMMARY - Left ventricle: The cavity size was normal. Wall thickness was normal. Systolic function was normal. The estimated ejection fraction was in the range of 55% to 60%. Wall motion was normal; there were no regional wall motion abnormalities. - Aortic valve: Bicuspid; normal thickness leaflets. - Atrial septum: An Amplatzer closure device was present. There was no atrial level shunt. If LV function is below 40, please consider prescribing an ACEI or ARB or document rationale for non-use. PROCEDURE DATA STUDY STATUS: Elective. Procedure: Transthoracic echocardiography. Image quality was good. Scanning was performed from the parasternal, apical, and subcostal acoustic windows. Intravenous contrast (agitated saline) was administered to identify shunting. STUDY COMPLETION: THE PATIENT TOLERATED THE PROCEDURE WELL. Transthoracic echocardiography. M-mode, complete 2D, complete spectral Doppler, and color Doppler. Patient status: Inpatient. CARDIAC ANATOMY LEFT VENTRICLE: The cavity size was normal. Wall thickness was normal. Systolic function was normal. The estimated ejection fraction was in the range of 55% to 60%. Wall motion was normal; there were no regional wall motion abnormalities. AORTIC VALVE: Bicuspid; normal thickness leaflets. Doppler: Transvalvular velocity was within the normal range. There was no stenosis. No regurgitation. AORTA: Aortic root: The aortic root was normal in size. MITRAL VALVE: Structurally normal valve. Doppler: Transvalvular velocity was within the normal range. There was no evidence for stenosis. No regurgitation. LEFT ATRIUM: The atrium was normal in size. ATRIAL SEPTUM: An Amplatzer closure device was present. There was no atrial level shunt. RIGHT VENTRICLE: The cavity size was normal. Wall thickness was normal. PULMONIC VALVE: Doppler: Transvalvular velocity was within the normal range. There was no evidence for stenosis. No regurgitation. TRICUSPID VALVE: Structurally normal valve. Doppler: Transvalvular velocity was within the normal range. Trace regurgitation. PULMONARY ARTERY: The main pulmonary artery was normal-sized. Systolic pressure was within the normal range. RIGHT ATRIUM: The atrium was normal in size. PERICARDIUM: There was no pericardial effusion. SYSTEMIC VEINS: Inferior vena cava: The vessel was normal in size. BASIC MEASUREMENTS ADULT NORMAL Left ventricle LV internal dimension, ED, chordal level, 48.9 mm 43-52 PLAX LV internal dimension, ES, chordal level, 36.3 mm 23-38 PLAX Fractional shortening, chordal level, PLAX *26 % >29 LV posterior wall thickness, ED 6.98 mm IVS/LVPW ratio, ED *1.76 <1.3 Ventricular septum Septal thickness, ED 12.3 mm Aortic valve Leaflet separation 18 mm 15-26 Right ventricle RV internal dimension, ED, PLAX 24.7 mm 19-38 BASIC MEASUREMENTS ADULT NORMAL Aortic valve Leaflet separation 18 mm 15-26 Aorta Root diameter, ED 37 mm 20-37 Left atrium Anterior-posterior dimension, ES 27 mm 19-40 LA/aortic root ratio 0.73 LEGEND: Mean values are shown as u=mean value. Asterisk (*) brown values outside specified normal range. Prepared and signed by Lazaro Mcnally [id number]
== END 2017-03-08 08:24 | disposition home or self-care (01) ==
LOC: HECH 07:23 → HDIC 07:37 → HECH 08:24
PROVIDERS: ATTEND Internal Medicine
DX: Q21.1 Atrial septal defect (principal)
CPT/HCPCS: 93306